=== PATIENT | female | born 1965 | race Two or more races ===

== ENCOUNTER → 2017-03-05 | Outpatient (CLI) | payer OTHER ==
--- NOTE | ~2017-03-05 | MY29 ---
[facility] A Service of [facility] RADIOLOGY TEXT RESULTS PATIENT: REMINGTON ATWOOD LOCATION: [facility] : 63 UNIT #: [id number] AGE: [address]: QUYEN HAGER APRN SEX: F ORDER DR: [id number] [place], [place] [address] [id number] MR#: [id number] Acc #: [id number] NAME: REMINGTON ATWOOD : 1965 SEX: F STUDY DATE/TIME: 03/05/2017 8:11 UNIT: [facility] ROOM: STUDY DESCRIPTION: MY SHEN SCREENING W/ CAD BILAT Attending Physician: Quyen Hager Referring Physician: Quyen Hager Ordering Physician: Kilo Hager M.D. Primary Care Physician: Quyen Hager MEDICAL IMAGING REPORT This report is preliminary unless electronic signature is present EXAM Bilateral Digital Screening Mammogram with CAD INDICATION Breast cancer screening. 51-year-old asymptomatic female. No personal or family history of breast cancer. COMPARISON November 30, 2015. FINDINGS There are scattered fibroglandular tissues. No suspicious findings are present. IMPRESSION No mammographic evidence of malignancy. Annual screening mammography and clinical breast exam are recommended. A result letter will be sent to the patient. Patients over the age of 40 are entered into a reminder system with target due date for the next mammogram. BIRADS: 1 Negative Dictated by... Allen Duncan M.D. THIS IS AN ELECTRONICALLY VERIFIED REPORT Allen Duncan M.D. at 03/05/2017 1:54 PM BLM/bd [facility] A Service of [facility] RADIOLOGY TEXT RESULTS PATIENT: REMINGTON ATWOOD LOCATION: [facility] : 63 UNIT #: [id number] AGE: [address]: QUYEN HAGER APRN SEX: F ORDER DR: TD: 03/05/2017 13:15 JOB #: [id number] MEDICAL IMAGING REPORT Page 1 of 1 COPY
== END | disposition home or self-care (01) ==
LOC: CWCC 07:30
DX: Z12.31 Encounter for screening mammogram for malignant neoplasm of breast (principal)
CPT/HCPCS: G0202